=== PATIENT | female | born 1940 | race Caucasian/White ===

== ENCOUNTER 2020-09-09 13:27 | Emergency (ER) | payer MEDICARE, BC ==
[~2020-09-09] VITALS: Ht 160 cm; Wt 60.4 kg
[~2020-09-09 13:27] MED LIST: ALBU2.5V14 NEB; AMLO10TA4 PO; ASPI-630 PO; BUPR200T2 PO; CEFT1VIA IJ; CIPR500T PO; CRESTOR10 MG PO; FLUT16SP2 NS; HYDR200T71 PO; LEVO50TA PO; LOSA100T14 PO; MELO7.5T5 PO; NEBI20TA2 PO; NITR0.4T24 SL; OMEP40CA45 PO; PROP10DR4 OP; TRAM50TA PO; TRIA10.8 NS; VILA20TA PO; ZOLP10TA PO
[2020-09-09 13:34] VITALS: BP 121/64
[2020-09-09] MEDS: AMPICILLIN/SULBACTAM 3 GM in IV NORMAL SALINE 100ML 100 ML IV ONE (14:15)
--- NOTE | 2020-09-09 14:20 | PHYS DOC ---
Past History Past Medical History: No Pertinent History, Hypertension Past Surgical History: No Surgical History Alcohol Use: None General Adult EDM: Chief Complaint: ANIMAL BITE HPI: HPI: Patient is a 80-year-old female who presented to ER for evaluation of cat bite on her right hand happened about 24 hours ago. Patient was cleaning her cat, brushing the hair. Somehow, the cat turned around at BIT her on her right hand. Patient said she has raised this cat for a long time, received all the vaccination. The cat has been acting normal. Patient is not sure when she had a tetanus shot last. Patient denied any fever. She said the hand became more swollen and painful today so she came here for evaluation. Patient can open and close her right hand without any problem. Review of Systems: Review of Systems: Constitutional: Denies fever or chills Eyes: Denies change in visual acuity HENT: Denies nasal congestion or sore throat Respiratory: Denies cough or shortness of breath Cardiovascular: Denies chest pain or edema GI: Denies abdominal pain, nausea, vomiting, bloody stools or diarrhea : Denies dysuria Musculoskeletal: Positive for right hand pain and swelling. Integument: Positive for right hand redness. Neurologic: Denies headache, focal weakness or sensory changes Endocrine: Denies polyuria or polydipsia Lymphatic: Denies swollen glands Psychiatric: Denies depression or anxiety Current Medications: Current Meds: Current Medications Medications (Trade) Dose Ordered Sig/Paresh Start Time Stop Time Status Last Admin Dose Admin Ampicillin Sodium/ Sulbactam Sodium 3 gm/Sodium Chloride 100 ml @ 200 mls/hr 1X ONCE 09/09/20 14:15 09/09/20 14:44 Diphtheria/ Pertussis/Tetanus Vacc (ADACEL TDap SYRINGE) 0.5 ml ONCE ONCE 09/09/20 14:30 09/09/20 14:31 UNV Sodium Chloride 500 ml @ 0 mls/hr 1X ONCE 09/09/20 14:30 09/09/20 14:31 UNV Allergies: Allergies: Allergies Coded Allergies Type Severity Reaction Last Updated Verified cyclosporine Allergy Intermediate 07/21/14 Yes Physical Exam: PE: Constitutional: Well developed, well nourished, no acute distress, non-toxic appearance. [] HENT: Normocephalic, atraumatic, bilateral external ears normal, oropharynx moist, no oral exudates, nose normal. [] Eyes: PERRLA, EOMI, conjunctiva normal, no discharge. [] Neck: Normal range of motion, no tenderness, supple, no stridor. [] Cardiovascular:Heart rate regular rhythm, no murmur [] Lungs & Thorax: Bilateral breath sounds clear to auscultation [] Abdomen: Bowel sounds normal, soft, no tenderness, no masses, no pulsatile masses. [] Skin: Warm, dry, no erythema, no rash. [] Back: No tenderness, no CVA tenderness. [] Extremities: there are two small bite sanford on the dorsal surface of right hand just proximal to the MCP JOINTS.THERE IS STREAKING ERYTHEMA TO THE RIGHT WRIST AREA. PATIENT CAN MOVE ALL FINGERS WITHOUT ANY PROBLEM. Neurologic: Alert and oriented X 3, normal motor function, normal sensory function, no focal deficits noted. [] Psychologic: Affect normal, judgement normal, mood normal. [] Current Patient Data: Vital Signs: Vital Signs Date Time Temp Pulse Resp B/P (MAP) Pulse Ox O2 Delivery O2 Flow Rate FiO2 09/09/20 13:34 99.5 92 16 121/64 (83) 92 Room Air EKG: EKG: [] Radiology/Procedures: Radiology/Procedures: Laboratory Tests Test 09/09/20 14:48 White Blood Count 15.2 x10^3/uL Red Blood Count 3.91 x10^6/uL Hemoglobin 12.7 g/dL Hematocrit 37.3 % Mean Corpuscular Volume 95 fL Mean Corpuscular Hemoglobin 33 pg Mean Corpuscular Hemoglobin Concent 34 g/dL Red Cell Distribution Width 12.2 % Platelet Count 321 x10^3/uL Neutrophils (%) (Auto) 70 % Lymphocytes (%) (Auto) 14 % Monocytes (%) (Auto) 14 % Eosinophils (%) (Auto) 1 % Basophils (%) (Auto) 1 % Neutrophils # (Auto) 10.6 x10^3uL Lymphocytes # (Auto) 2.1 x10^3/uL Monocytes # (Auto) 2.2 x10^3/uL Eosinophils # (Auto) 0.2 x10^3/uL Basophils # (Auto) 0.1 x10^3/uL Segmented Neutrophils % 69 % Lymphocytes % 12 % Monocytes % 16 % Eosinophils % 3 % Platelet Estimate Adequate Sodium Level 136 mmol/L Potassium Level 4.0 mmol/L Chloride Level 104 mmol/L Carbon Dioxide Level 25 mmol/L Anion Gap 7 Blood Urea Nitrogen 17 mg/dL Creatinine 1.4 mg/dL Estimated GFR (Cockcroft-Gault) 36.4 BUN/Creatinine Ratio 12 Glucose Level 84 mg/dL Calcium Level 8.7 mg/dL Total Bilirubin 0.9 mg/dL Aspartate Amino Transf (AST/SGOT) 33 U/L Alanine Aminotransferase (ALT/SGPT) 13 U/L Alkaline Phosphatase 143 U/L Total Protein 7.6 g/dL Albumin 3.2 g/dL Albumin/Globulin Ratio 0.7 Current Medications Medications (Trade) Dose Ordered Sig/Paresh Route PRN Reason Start Time Stop Time Status Last Admin Dose Admin Ampicillin Sodium/ Sulbactam Sodium 3 gm/Sodium Chloride 100 ml @ 200 mls/hr 1X ONCE IV 09/09/20 14:15 09/09/20 14:44 DC 09/09/20 14:15 Diphtheria/ Pertussis/Tetanus Vacc (ADACEL TDap SYRINGE) 0.5 ml ONCE ONCE VAX IM 09/09/20 14:30 09/09/20 14:31 DC 09/09/20 14:53 Sodium Chloride 500 ml @ 0 mls/hr 1X ONCE IV 09/09/20 14:30 09/09/20 14:31 DC 09/09/20 14:52 Diphenhydramine HCl (Benadryl) 25 mg 1X ONCE IVP 09/09/20 15:30 09/09/20 15:38 DC 09/09/20 15:58 Methylprednisolone Sodium Succinate (SOLU-Medrol 125MG VIAL) 125 mg 1X ONCE IV 09/09/20 15:30 09/09/20 15:38 DC 09/09/20 15:58 [] [address] [address] IMAGING REPORT Signed PATIENT: MAJO IBRAHIM ACCOUNT: [id number] : 1940 LOCATION: ER AGE: 80 SEX: F EXAM STATUS: REG ER ORD. PHYSICIAN: SUYAPA ANGELES DO REASON: CAT BITES ON RIGHT HAND PROCEDURE: HAND RIGHT 3V Right hand 3 views 09/09/2020. Reason for exam: Cat bites. No acute fracture or dislocation is seen. There is no apparent foreign body. 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 IMPRESSION: No apparent acute abnormality. Electronically signed by: Arnaldo Cullen Jr., MD (09/09/2020 2:33 PM) [facility] DICTATED AND SIGNED BY: ARNALDO CULLEN Jr, MD DATE: 09/09/20 1431 CC: SUYAPA NAYAK MD; SUYAPA ANGELES DO ~MTH0 0 Heart Score: Risk Factors: Risk Factors: DM, Current or recent (<one month) smoker, HTN, HLP, family history of CAD, obesity. Risk Scores: Score 0 - 3: 2.5% MACE over next 6 weeks - Discharge Home Score 4 - 6: 20.3% MACE over next 6 weeks - Admit for Clinical Observation Score 7 - 10: 72.7% MACE over next 6 weeks - Early Invasive Strategies Course & Med Decision Making: Course & Med Decision Making Pertinent Labs and Imaging studies reviewed. (See chart for details) Patient is a 80-year-old female who presented to ER due to cat bite on her right hand. The wound is tender to palpation, no crepitus, THERE IS ERYTHEMA ON THE DORSAL PART OF RIGHT HAND, patient was given 3 g of Unasyn IV in ER, she will be discharged home with Augmentin. Patient will need to follow-up with her family physician in 2 days for reevaluation. Patient is amenable to plan of care. Dragon Disclaimer: Dragon Disclaimer: This electronic medical record was generated, in whole or in part, using a voice recognition dictation system. Departure Departure: Impression: Primary Impression: Cat bite of right hand with infection Disposition: 01 DC HOME SELF CARE/HOMELESS Condition: IMPROVED Referrals: SUYAPA NAYAK MD (PCP) Please follow up with your doctor in 2 days for reevaluation Patient Instructions: Animal Bite Additional Instructions: Thank you for visiting our Emergency Department. We appreciate you trusting us with your care. If any additional problems come up don't hesitate to return to visit us. Please follow up with your primary care provider so they can plan additional care if needed and know about the problem that you had. If symptoms worsen come back to the Emergency Department. Any concerning symptoms that start such as chest pain, shortness of air, weakness or numbness on one side of the body, running high fevers or any other concerning symptoms return to the ER. Scripts Amoxicillin/Potassium Clav (AUGMENTIN 875-125 TABLET) 1 Each Tablet 1 TAB PO BID for CAT BITE for 10 Days, #20 TAB 0 Refills Prov: SUYAPA ANGELES DO 09/09/20 SUYAPA ANGELES DO Sep 09, 2020 14:20
--- NOTE | 2020-09-09 14:36 | RAD ---
Right hand 3 views 09/09/2020. Reason for exam: Cat bites. No acute fracture or dislocation is seen. There is no apparent foreign body. 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 IMPRESSION: No apparent acute abnormality. Electronically signed by: Murray Cullen Jr., MD (09/09/2020 2:33 PM) [facility]
[2020-09-09] MEDS: IV NORMAL SALINE 500ML 500 ML IV ONE (14:52)
[2020-09-09] MEDS: DIPH,PERTUSS(ACELL),TET VAC/PF 0.5 ML SYRINGE. VAX IM ONE (14:53)
[2020-09-09 14:59] LABS: BASO # 0.1 x10^3/uL (0.0-0.2); BASO % 1 % (0-3); EOS # 0.2 x10^3/uL (0.0-0.7); EOS % 1 % (0-3); HEMATOCRIT 37.3 % (36.0-47.0); HEMOGLOBIN 12.7 g/dL (12.0-15.5); LYMPH # 2.1 x10^3/uL (1.0-4.8); LYMPH % 14 % (24-48); MEAN CORPUSCULAR HEMOGLOBIN 33 pg (25-35); MEAN CORPUSCULAR HGB CONC 34 g/dL (31-37); MEAN CORPUSCULAR VOLUME 95 fL (79-100); MONO # 2.2 x10^3/uL (0.0-1.1); MONO % 14 % (0-9); NEUT # 10.6 x10^3uL (1.8-7.7); NEUT % 70 % (31-73); PLATELET COUNT 321 x10^3/uL (140-400); RED BLOOD COUNT 3.91 x10^6/uL (3.50-5.40); RED CELL DISTRIBUTION WIDTH 12.2 % (11.5-14.5); WHITE BLOOD COUNT 15.2 x10^3/uL (4.0-11.0)
[2020-09-09 15:09] LABS: CALCIUM 8.7 mg/dL (8.5-10.1); CREATININE 1.4 mg/dL (0.6-1.0); GFR 36.4
[2020-09-09 15:15] LABS: ALBUMIN 3.2 g/dL (3.4-5.0); ALBUMIN/GLOBULIN RATIO 0.7 (1.0-1.7); TOTAL BILIRUBIN 0.9 mg/dL (0.2-1.0); TOTAL PROTEIN 7.6 g/dL (6.4-8.2)
[2020-09-09] MEDS: methylPREDNISolone SOD SUCC PF 125 MG/2 ML VIAL. IV ONE (15:58)
[2020-09-09] MEDS: diphenhydrAMINE 50 MG/ML VIAL IVP ONE (15:58)
[2020-09-09] MEDS ORDERED: AMOX1TAB61 PO (16:35)
[2020-09-09 16:58] LABS: % EOS 3 % (0-5); % LYMPHS 12 % (24-48); % MONOS 16 % (0-10); % SEGS 69 % (35-66)
[2020-09-09 16:59] LABS: PLT ESTIMATE ADEQUATE (ADEQUATE)
== END 2020-09-09 16:43 | disposition home or self-care (01) ==
LOC: ER 13:27
DX: S61.451A Open bite of right hand, initial encounter (principal); L08.9 Local infection of the skin and subcutaneous tissue, unspecified; I10 Essential (primary) hypertension; Z88.8 Allergy status to other drugs, medicaments and biological substances; W55.01XA Bitten by cat, initial encounter; Y93.89 Activity, other specified; Y92.89 Other specified places as the place of occurrence of the external cause; Y99.8 Other external cause status
CPT/HCPCS: 36415; 73130; 80053; 85007; 85025; 90471; 90715; 96365; 96375; J0295; J1200; J2930; J7040; 99284-25

== ENCOUNTER 2021-03-02 10:52 | Inpatient (IN) | payer MEDICARE, BC ==
[~2021-03-02] VITALS: Ht 160 cm; Wt 62.5 kg
[~2021-03-02 10:52] MED LIST changes: +AMOX1TAB61 PO; -CIPR500T PO; +CIPR500T2 PO
--- NOTE | 2021-03-02 11:43 | NUR ---
The patient, MAJO IBRAHIM, 80 y/o, F admitted by SUYAPA NAYAK MD, was given written information regarding hospital policies, unit procedures and contact persons. Valuables were checked and VS taken, please see chart.
[2021-03-02 11:45] VITALS: BP 138/77
[2021-03-02] MEDS ORDERED: GABA600T7 PO (12:29)
[2021-03-02] MEDS ORDERED: CARB1TAB22 PO (12:29)
[2021-03-02] MEDS ORDERED: CALC-495 PO (12:29)
[2021-03-02] MEDS ORDERED: PROP60CA36 PO (12:29)
[2021-03-02] MEDS ORDERED: ESCITALOPRAM OX20 MG PO (12:29)
[2021-03-02] MEDS ORDERED: HYDR200T71 PO (12:29)
[2021-03-02] MEDS ORDERED: NALT50TA PO (12:30)
[2021-03-02] MEDS ORDERED: LORA-254 PO (12:30)
[2021-03-02] MEDS ORDERED: DICL1PAT35 TP (12:30)
[2021-03-02 13:52] LABS: HEMATOCRIT 35.1 % (36.0-47.0); HEMOGLOBIN 11.9 g/dL (12.0-15.5); RED BLOOD COUNT 3.7 x10^6/uL (3.50-5.40); RED CELL DISTRIBUTION WIDTH 12.1 % (11.5-14.5); WHITE BLOOD COUNT 11.4 x10^3/uL (4.0-11.0)
[2021-03-02] MEDS: IV NORMAL SALINE 1,000ML 1,000 ML IV SCH (14:00)
[2021-03-02 14:06] LABS: ALBUMIN 3.3 g/dL (3.4-5.0); ALBUMIN/GLOBULIN RATIO 0.9 (1.0-1.7); CALCIUM 8.7 mg/dL (8.5-10.1); CREATININE 1.5 mg/dL (0.6-1.0); GFR 33.6; POTASSIUM 5.2 mmol/L (3.5-5.1); TOTAL BILIRUBIN 0.6 mg/dL (0.2-1.0)
[2021-03-02] MEDS ORDERED: ACETAMINOPHEN 500 MG TABLET PO PRN (14:15)
[2021-03-02 15:36] LABS: BILIRUBIN,URINE NEG (NEG); CLARITY,URINE HAZY; COLOR,URINE YELLOW; GLUCOSE,URINE NEG (NEG); NITRITE,URINE NEG (NEG); RBC,URINE 0 /HPF (0-2); UROBILINOGEN,URINE 0.2 mg/dL (0.2 mg/dL); WBC,URINE OCC /HPF (0-4)
[2021-03-02 15:37] LABS: BACTERIA,URINE 0 /HPF (0-FEW); SQUAMOUS EPITHELIAL CELL,UR OCC /LPF
[2021-03-02 15:51] VITALS: BP 117/71
[2021-03-02 15:59] VITALS: BP_SYST 116; BP_SYST 128; BP_SYST 136; BP_DIAS 54; BP_DIAS 63; BP_DIAS 65
--- NOTE | 2021-03-02 17:11 | RAD ---
XR HAND_LEFT 2 VIEWS, XR LT WRIST 2 VIEWS 03/02/2021 4:35 PM INDICATION: Fall, bruising to the hand COMPARISON: None available. TECHNIQUE: 2 views of the left hand and 2 views the left wrist are provided. FINDINGS/ IMPRESSION: 1. Distal radius and ulna are intact. Carpal bones appear intact. No acute fracture or dislocation. 2. There is moderate joint space narrowing of the first carpometacarpal joint with subcortical sclero sis and marginal osteophytosis compatible with moderate osteoarthrosis. No adjacent soft tissue swell ing. No secondary findings of fracture at the base of the first metacarpal. 3. 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 Carpals, metacarpals and phalanges appear intact. Remodeling of the proximal interphalangeal joint of the third digit favors advanced osteoarthrosis. No definite acute fracture o r dislocation. Chronic sclerosis along the triquetrum. 4. Osteopenia. Electronically signed by: Mary Jo Ross MD (03/02/2021 5:09 PM) [facility]
--- NOTE | 2021-03-02 17:50 | EKG ---
[address] [address] Test Date: 2021-03-02 Test Time: 17:13:33 Pat Name: MAJO IBRAHIM Department: Room: 124 A Gender: F Voice Network Engineer: : 1940 Requested By: SUYAPA NAYAK Order Number: [id number] Reading MD: Measurements Intervals [place] Rate: 59 P: 31 AK: 144 QRS: -24 QRSD: 94 T: 40 QT: 434 QTc: 434 Interpretive Statements SINUS RHYTHM LEFTWARD AXIS OTHERWISE NORMAL ECG RI6.01 No previous ECG available for comparison
--- NOTE | 2021-03-02 18:32 | RAD ---
CT brain without contrast, CT orbits without contrast. HISTORY: Falls CT brain CT scan of the brain was done without contrast. A skull fracture is not identified. Sinuses are clear . There is no intracranial hemorrhage or subdural hematoma. Ventricles are normal in size. There is n o mass effect or shift of the midline. An acute CVA is not identified. There is mild decreased densit y in the periventricular white matter. IMPRESSION: 1. No intracranial hemorrhage or acute finding noted. End impression CT images were obtained through the orbits and facial bones. Mandible is intact without fracture. Sin uses are clear throughout. A facial or orbital fracture is not identified. Ostiomeatal complex is sp ar. There is a defect in the bony septum. Orbits appear unremarkable. Patient is edentulous. Nasal fr acture is not identified. There is no acute fracture in the upper cervical spine. The cervical spine was not completely evaluated. There is facet arthritis. There is mild degenerative disc disease at C3 -4. IMPRESSION: 1. No facial or orbital fracture noted. PQRS Compliance Statement: One or more of the following individualized dose reduction techniques were utilized for this examinat ion: 1. Automated exposure control 2. Adjustment of the mA and/or kV according to patient size 3. Use of iterative reconstruction technique Electronically signed by: Juancho Ovalles MD (03/02/2021 6:30 PM) [facility]
[2021-03-02 20:00] VITALS: BP 110/69
[2021-03-02] MEDS ORDERED: NITROGLYCERIN SUBLINGUAL 0.4 MG BOTTLE OF 25. SL PRN (20:30)
[2021-03-02] MEDS ORDERED: ATORVASTATIN CALCIUM 20 MG TABLET PO SCH (21:00)
[2021-03-02] MEDS ORDERED: PROPRANOLOL 20 MG TABLET. PO SCH (21:00)
[2021-03-02] MEDS: DICLOFENAC EPOLAMINE TP SCH (21:00)
[2021-03-02] MEDS ORDERED: ALBUTEROL SULFATE 2.5 MG/3 ML NEBU. NEB PRN (21:00)
[2021-03-02] MEDS ORDERED: GABAPENTIN 300 MG CAPSULE. PO SCH (21:00)
[2021-03-02] MEDS ORDERED: CARBIDOPA/LEVODOPA 25/100MG TABLET PO SCH (21:00)
[2021-03-03 00:13] VITALS: BP 156/69
[2021-03-03] MEDS: IV NORMAL SALINE 1,000ML 1,000 ML IV SCH (03:20)
[2021-03-03] MEDS ORDERED: LEVOTHYROXINE 50 MCG TABLET PO SCH (06:00)
[2021-03-03] MEDS ORDERED: PANTOPRAZOLE 40 MG TABLET. PO SCH (07:30)
[2021-03-03] MEDS ORDERED: CALCIUM CARB/VIT D3 500/200 TABLET PO SCH (08:00)
[2021-03-03] MEDS ORDERED: FLUTICASONE 50MCG/NASAL SPRAY 16GM BOTTLE. NS SCH (09:00)
[2021-03-03] MEDS ORDERED: NALTREXONE HCL 50 MG TABLET PO SCH (09:00)
[2021-03-03] MEDS ORDERED: PROPRANOLOL 20 MG TABLET. PO SCH (09:00)
[2021-03-03] MEDS ORDERED: traMADol 50 MG TABLET PO SCH (09:00)
[2021-03-03] MEDS ORDERED: CITALOPRAM 20 MG TABLET. PO SCH (09:00)
[2021-03-03] MEDS ORDERED: buPROPion XL 300 MG TAB.ER.24H. PO SCH (09:00)
[2021-03-03] MEDS ORDERED: ASPIRIN CHEWABLE 81 MG TABLET. PO SCH (09:00)
[2021-03-03] MEDS: DICLOFENAC EPOLAMINE TP SCH (09:00)
[2021-03-03] MEDS ORDERED: HYDROXYCHLOROQUINE 200 MG TABLET PO SCH (09:00)
[2021-03-03] MEDS ORDERED: amLODIPine BESYLATE 5 MG TABLET PO SCH (09:00)
[2021-03-03 11:41] VITALS: BP 145/66
--- NOTE | 2021-03-03 13:30 | NUR ---
PT dc to home with . PT was able to ambulate with ease and mild dizziness when moving to fast. Pt is wanting to go home and feels stable. Her son's tried to visit today and were told not visitors, so patient was upset. Called registration because nobody had called and talked to myself, her nurse. Visitors are currently allowed. Was told by Angelica in registration that there was some confusion with a new employee and they were accidently turned away. I apologized for the confusion. PT left with family via ambulation. Mely Villarreal APRN
--- NOTE | 2021-03-03 16:34 | NUR ---
PT refusing to be turned. PT reports that she turns her self and moves around in the bed. PT has a pure wick to suction. Pt reporting that she is in pain. She asked this after noon when I would be giving her all her medications? Told her that she took them all this AM during breakfast and she reported "Oh I don't remember that". PT asking for her flexeril. Pt was informed that Dr. Jacob discontinued the flexeril. Pt upset. PT is partially able to verbalize understanding of poc. Encourage pt to keep heels off the bed and wear heel protectors and pt refused.
--- NOTE | 2021-03-04 14:55 | DS ---
DATE OF DISCHARGE: 03/03/2021 A 80-year-old female has been falling several times at home out of bed and trying to walk in her home. She was brought in, she has multiple contusions to right orbit as well as her left wrist was markedly swollen. X-rays did not demonstrate any particular fractures. CT of the head was unremarkable. Hemoglobin was slightly low at 11.9 and 35. The patient's albumin was slightly low at 3.3. Potassium is slightly elevated at 5.2. The patient receive physical and occupational therapy. She was rehydrated and she was orthostatic in the office and showed a 20-point decrease in her blood pressure when standing. The patient made good progress. She was continued to be monitored on her situation with her walking before she was left and stabilized and then she was discharged home. She will be followed up and may consider home health for her if or consented by the family. 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 Plan as above. Continue to monitor the patient accordingly, make further evaluation as indicated. She will be on a regular diet, decrease activity and a further evaluation on her as indicated. moderate protein malnutrition. SONIA/PETRONA/KACEY DR: SONIA/gallo TID: [id number]
== END 2021-03-03 13:30 | disposition home or self-care (01) | DRG 312 ==
LOC: 1 SOUTH 10:52
PROVIDERS: ADMIT Family Medicine; ATTEND Family Medicine
DX: I95.1 Orthostatic hypotension (principal); E44.0 Moderate protein-calorie malnutrition; S05.11XA Contusion of eyeball and orbital tissues, right eye, initial encounter; Z68.24 Body mass index [BMI] 24.0-24.9, adult; S63.502A Unspecified sprain of left wrist, initial encounter; W06.XXXA Fall from bed, initial encounter; Y93.89 Activity, other specified; Y92.098 Other place in other non-institutional residence as the place of occurrence of the external cause; Y99.8 Other external cause status; Z88.8 Allergy status to other drugs, medicaments and biological substances; Z79.899 Other long term (current) drug therapy; Z90.710 Acquired absence of both cervix and uterus
CPT/HCPCS: 36415; 70450; 70480; 73100; 73120; 80053; 81001; 84484; 85027; 87086; 93005; 97116; J7030

== ENCOUNTER → 2021-04-19 | Outpatient (CLI) | payer MEDICARE, BC ==
[~2021-04-19] MED LIST changes: +CALC-495 PO; +CARB1TAB22 PO; +DICL1PAT35 TP; +ESCITALOPRAM OX20 MG PO; +GABA600T7 PO; +LORA-254 PO; +NALT50TA PO; -OMEP40CA45 PO; +OMEP40CA7 PO; +PROP60CA36 PO
[2021-04-19 09:09] LABS: HEMATOCRIT 38.1 % (36.0-47.0); HEMOGLOBIN 13.2 g/dL (12.0-15.5)
[2021-04-19 09:20] LABS: ALBUMIN 3.5 g/dL (3.4-5.0); CREATININE 1.5 mg/dL (0.6-1.0); GFR 33.6; PHOSPHORUS 5.2 mg/dL (2.6-4.7); POTASSIUM 4.2 mmol/L (3.5-5.1)
[2021-04-19 09:21] LABS: BILIRUBIN,URINE NEG (NEG); CLARITY,URINE HAZY; COLOR,URINE YELLOW; GLUCOSE,URINE NEG (NEG); NITRITE,URINE NEG (NEG)
[2021-04-19 09:23] LABS: BACTERIA,URINE FEW /HPF (0-FEW); RBC,URINE OCC /HPF (0-2); SQUAMOUS EPITHELIAL CELL,UR FEW /LPF
[2021-04-19 16:05] LABS: CREATININE,RANDOM URINE 185.1 mg/dL (Not Establ.)
[2021-04-19 22:07] LABS: MICROALB RD UR 72.1 ug/mL (Not Estab.)
[2021-04-19 23:07] LABS: CALCIUM PTH 9.4 mg/dL (8.7-10.3); CREATININE PTH 1.35 mg/dL (0.57-1.00); PTH INTACT 34 pg/mL (15-65)
== END ==
LOC: LAB 07:32
PROVIDERS: ATTEND Internal Medicine Nephrology
DX: I12.9 Hypertensive chronic kidney disease with stage 1 through stage 4 chronic kidney disease, or unspecified chronic kidney disease (principal); N18.32 Chronic kidney disease, stage 3b; D64.9 Anemia, unspecified; E83.30 Disorder of phosphorus metabolism, unspecified; Z79.899 Other long term (current) drug therapy
CPT/HCPCS: 80069; 81001; 82043; 82306; 82570; 83970; 84156; 85014; 85018; 87086

== ENCOUNTER 2021-06-10 14:58 | Inpatient (IN) | payer MEDICARE, BC ==
[~2021-06-10] VITALS: Ht 160 cm; Wt 57.9 kg
[2021-06-10] MEDS ORDERED: IV NORMAL SALINE 1,000ML 1,000 ML IV ONE (15:15)
--- NOTE | 2021-06-10 15:27 | PHYS DOC ---
Past History Past Medical History: No Pertinent History, Hypertension (IMMANUEL ALTAMIRANO APRN) Past Surgical History: No Surgical History (IMMANUEL ALTAMIRANO APRN) Alcohol Use: None (IMMANUEL ALTAMIRANO APRN) General Adult EDM: Chief Complaint: NAUSEA/VOMITING/DIARRHEA HPI: HPI: Patient is a 81-year-old female who presents to the ER for nausea, vomiting, generalized weakness. Patient reports frequent falls. She states she loses her balance and falls and fell this morning. She reports falling 15 times this year so far. Patient currently has right shoulder fracture from a previous fall and it is in a sling. Patient states anytime she tries to take anything by mouth she ends up regurgitating it. Patient has a history of esophageal strictures with stretching. Her last procedure was performed by Dr. Fiore. She denies diarrhea, fevers, abdominal pain, headaches. She denies hitting her head or loss of consciousness after her fall this morning and reports that she just slid out of bed. (IMMANUEL ALTAMIRANO APRN) Review of Systems: Review of Systems: 14 body systems of the review of systems have been reviewed. See HPI for pertinent positive and negative responses, otherwise all other systems are negative, nonpertinent or noncontributory (IMMANUEL ALTAMIRANO APRN) Current Medications: Current Meds: Current Medications Medications (Trade) Dose Ordered Sig/Paresh Start Time Stop Time Status Last Admin Dose Admin Sodium Chloride 1,000 ml @ 1,000 mls/hr 1X ONCE 06/10/21 15:15 06/10/21 16:14 (IMMANUEL ALTAMIRANO APRN) Allergies: Allergies: Allergies Coded Allergies Type Severity Reaction Last Updated Verified cyclosporine Allergy Intermediate 06/10/21 Yes ropinirole Allergy Mild nausea 06/10/21 Yes ciprofloxacin Allergy Unknown 06/10/21 Yes (IMMANUEL ALTAMIRANO APRN) Physical Exam: PE: Constitutional: Well developed, well nourished, no acute distress, non-toxic appearance. [] HENT: Normocephalic, atraumatic, bilateral external ears normal, oropharynx moist, no oral exudates, nose normal. [] Eyes: PERRLA, EOMI, conjunctiva normal, no discharge. [] Neck: Normal range of motion, no tenderness, supple, no stridor. [] Cardiovascular:Heart rate regular rhythm, no murmur [] Lungs & Thorax: Bilateral breath sounds clear to auscultation [] Abdomen: Bowel sounds normal, soft, no tenderness, no masses, no pulsatile masses. [] Skin: Warm, dry, no erythema, no rash. [] Back: No tenderness, normal range of motion Extremities: No tenderness, no cyanosis, no clubbing, ROM intact, no edema. Right arm in sling. [] Neurologic: Alert and oriented X 3, normal motor function, normal sensory function, no focal deficits noted. [] Psychologic: Affect normal, judgement normal, mood normal. [] (IMMANUEL ALTAMIRANO APRN) Current Patient Data: Vital Signs: Vital Signs Date Time Temp Pulse Resp B/P (MAP) Pulse Ox O2 Delivery O2 Flow Rate FiO2 06/10/21 15:05 98.6 77 18 145/66 99 Room Air (IMMANUEL ALTAMIRANO APRN) EKG: EKG: EKG performed by ER staff at 1532 shows sinus rhythm, no STEMI read by Dr. Rosado at 1542. [] (IMMANUEL ALTAMIRANO APRN) Radiology/Procedures: Radiology/Procedures: PROCEDURE: CT CHEST W/CONTRAST CT THORAX W History: Dysphagia Technique: CT of the chest was performed with intravenous contrast. Coronal and sagittal reconstructions were performed. Exposure: One or more of the following individualized dose reduction techniques were utilized for this examination: 1. Automated exposure control 2. Adjustment of the mA and/or kV according to patient size 3. Use of iterative reconstruction technique. Comparison: None Findings: Chest: No pulmonary embolism. No aortic aneurysm or dissection. Moderate atheromatous plaque within the aorta. Small mediastinal lymph nodes. Calcified right hilar lymph nodes, likely prior granulomatous disease. Coronary artery calcifications. Enlarged anterior pericardial lymph nodes measure 2.3 x 0.6 cm. Dilated fluid-filled esophagus. Esophageal wall thickening most prominent within the mid to distal aspect. Small hiatal hernia. Mildly enlarged distal paraesophageal lymph nodes measure 1.4 x 1.0 cm. No consolidation or pleural effusion. Scattered linear atelectasis. No pneumothorax. 3 no other left lower lobe pulmonary nodule (series 4 image 87). 2 mm left lower lobe pulmonary nodule (image 78). 2 minor right lower lobe pulmonary nodule (image 46). Upper abdomen: Heterogeneous appearance of the liver with nodular morphology. Prior cholecystectomy. The spleen is not identified within the left upper quadrant. Bilateral renal hypodensities, likely cysts. Mild right hydronephrosis. Bilateral enlarged upper abdominal lymph nodes. Bones: Acute right proximal humerus fracture. Right glenohumeral joint effusion. No dislocation. Chronic left distal clavicular fracture. Chronic T11 compression fracture. Impression: 1. Distended fluid-filled esophagus with wall thickening, may represent esophagitis. Recommend correlation for distal obstructing mass. 2. Acute right proximal humerus fracture. 3. Nodular morphology of the liver, indicating chronic liver disease. 4. Mildly enlarged anterior pericardial, distal paraesophageal and upper abdominal lymph nodes, potentially reactive. Recommend follow-up. 5. Small pulmonary nodules. Recommend attention on follow-up. 6. Mild right hydronephrosis. Electronically signed by: Ethan Dominguez DO (06/10/2021 4:59 PM) [facility] DICTATED AND SIGNED BY: ETHAN DOMINGUEZ DO DATE: 06/10/211645 CC: SUYAPA NAYAK MD; IMMANUEL ALTAMIRANO APRN ~MTH0 0 [] (IMMANUEL ALTAMIRANO APRN) Heart Score: C/O Chest Pain: No Risk Factors: Risk Factors: DM, Current or recent (<one month) smoker, HTN, HLP, family history of CAD, obesity. Risk Scores: Score 0 - 3: 2.5% MACE over next 6 weeks - Discharge Home Score 4 - 6: 20.3% MACE over next 6 weeks - Admit for Clinical Observation Score 7 - 10: 72.7% MACE over next 6 weeks - Early Invasive Strategies (IMMANUEL ALTAMIRANO APRN) Course & Med Decision Making: Course & Med Decision Making Pertinent Labs and Imaging studies reviewed. (See chart for details) [] Patient is a 81-year-old female being seen for nausea, vomiting, and generalized weakness with frequent falls. Work-up in the ER consisted of blood work, urinalysis, EKG. patient is noted to have leukocytosis. CT scan shows esophagitis. Patient p.o. challenge in the ER and she was unable to tolerate fluids. It is likely that patient has an esophageal stricture which is causing her to have regurgitation. I discussed patient's case with Dr. Pitts who is her primary care provider and he will admit her under his care for inability to tolerate oral intake. Patient will need a GI consult at some point, there are no available beds at [facility] at this time. Patient notified of plan of care and agreeable at this time. Care transferred at this time 190 (IMMANUEL ALTAMIRANO APRN) Maria Luisa Disclaimer: Maria Luisa Disclaimer: This electronic medical record was generated, in whole or in part, using a voice recognition dictation system. (IMMANUEL ALTAMIRANO APRN) Attending Co-Sign The patient was seen and interviewed as well as examined at the bedside. The chart was reviewed. The case was discussed. Agree with the plan of care. (JANUSZ GORDON DO) Departure Departure: Impression: Primary Impression: Esophagitis Additional Impression: At risk for dehydration due to poor fluid intake Disposition: ADMITTED INPATIENT Admitting Physician: Suyapa Nayak (IMMANUEL ALTAMIRANO APRN) Condition: GOOD Referrals: SUYAPA NAYAK MD (PCP) IMMANUEL ALTAMIRANO APRN Jun 10, 2021 15:27 JANUSZ GORDON DO Jun 13, 2021 19:53
[2021-06-10 15:51] LABS: BASO # 0.1 x10^3/uL (0.0-0.2); BASO % 1 % (0-3); EOS # 0.2 x10^3/uL (0.0-0.7); EOS % 1 % (0-3); LYMPH # 2.2 x10^3/uL (1.0-4.8); LYMPH % 15 % (24-48); MEAN CORPUSCULAR HEMOGLOBIN 32 pg (25-35); MEAN CORPUSCULAR HGB CONC 33 g/dL (31-37); MEAN CORPUSCULAR VOLUME 97 fL (79-100); MONO # 2.5 x10^3/uL (0.0-1.1); MONO % 17 % (0-9); NEUT % 67 % (31-73); PLATELET COUNT 315 x10^3/uL (140-400); RED BLOOD COUNT 3.71 x10^6/uL (3.50-5.40); RED CELL DISTRIBUTION WIDTH 12.6 % (11.5-14.5); WHITE BLOOD COUNT 15.1 x10^3/uL (4.0-11.0)
[2021-06-10 16:05] LABS: CALCIUM 8.6 mg/dL (8.5-10.1); GFR 53.5; POTASSIUM 4.2 mmol/L (3.5-5.1)
[2021-06-10 16:12] LABS: ALBUMIN 3.3 g/dL (3.4-5.0); ALBUMIN/GLOBULIN RATIO 0.8 (1.0-1.7); TOTAL BILIRUBIN 0.9 mg/dL (0.2-1.0); TOTAL PROTEIN 7.2 g/dL (6.4-8.2)
[2021-06-10] MEDS ORDERED: IOHEXOL 300 MG/ML 75 ML VIAL. IV ONE (16:30)
--- NOTE | 2021-06-10 16:38 | EKG ---
[address] [address] Test Date: 2021-06-10 Test Time: 15:32:26 Pat Name: MAJO IBRAHIM Department: Room: Gender: F Radiography Technician: KENNEY : 1940 Requested By: IMMANUEL ALTAMIRANO Order Number: [id number] Reading MD: Measurements Intervals [place] Rate: 75 P: 52 ME: 140 QRS: -35 QRSD: 98 T: 42 QT: 390 QTc: 438 Interpretive Statements SINUS RHYTHM ABNORMAL LEFT AXIS DEVIATION LEFT ANTERIOR FASCICULAR BLOCK QRS(T) CONTOUR ABNORMALITY CONSIDER ANTEROSEPTAL MYOCARDIAL DAMAGE ABNORMAL ECG RI6.02 No previous ECG available for comparison
[2021-06-10] MEDS ORDERED: CONTRAST GIVEN. MC PRN (17:00)
--- NOTE | 2021-06-10 17:01 | RAD ---
CT THORAX W History: Dysphagia Technique: CT of the chest was performed with intravenous contrast. Coronal and sagittal reconstructi ons were performed. Exposure: One or more of the following individualized dose reduction techniques were utilized for thi s examination: 1. Automated exposure control 2. Adjustment of the mA and/or kV according to patient size 3. Use of iterative reconstruction technique. Comparison: None Findings: Chest: No pulmonary embolism. No aortic aneurysm or dissection. Moderate atheromatous plaque within t he aorta. Small mediastinal lymph nodes. Calcified right hilar lymph nodes, likely prior granulomatou s disease. Coronary artery calcifications. Enlarged anterior pericardial lymph nodes measure 2.3 x 0.6 cm. Dilated fluid-filled esophagus. Esophageal wall thickening most prominent within the mid to distal as pect. Small hiatal hernia. Mildly enlarged distal paraesophageal lymph nodes measure 1.4 x 1.0 cm. No consolidation or pleural effusion. Scattered linear atelectasis. No pneumothorax. 3 no other left lower lobe pulmonary nodule (series 4 image 87). 2 mm left lower lobe pulmonary nodul e (image 78). 2 minor right lower lobe pulmonary nodule (image 46). Upper abdomen: Heterogeneous appearance of the liver with nodular morphology. Prior cholecystectomy. The spleen is not identified within the left upper quadrant. Bilateral renal hypodensities, likely cy sts. Mild right hydronephrosis. Bilateral enlarged upper abdominal lymph nodes. Bones: Acute right proximal humerus fracture. Right glenohumeral joint effusion. No dislocation. [employer] Observer kayli left distal clavicular fracture. Chronic T11 compression fracture. Impression: 1. Distended fluid-filled esophagus with wall thickening, may represent esophagitis. Recommend corre lation for distal obstructing mass. 2. Acute right proximal humerus fracture. 3. Nodular morphology of the liver, indicating chronic liver disease. 4. Mildly enlarged anterior pericardial, distal paraesophageal and upper abdominal lymph nodes, pote ntially reactive. Recommend follow-up. 5. Small pulmonary nodules. Recommend attention on follow-up. 6. Mild right hydronephrosis. Electronically signed by: Ethan Dominguez DO (06/10/2021 4:59 PM) [facility]
[2021-06-10] MEDS ORDERED: LIDO:MAALOX 1:1 20 ML SINGLE DOSE. PO ONE (17:30)
[2021-06-10] MEDS ORDERED: ONDANSETRON PF 4 MG/2 ML VIAL. IVP PRN (19:15)
[2021-06-10] MEDS ORDERED: IV NORMAL SALINE 1,000ML 1,000 ML IV SCH (19:15)
[2021-06-10 19:57] LABS: BACTERIA,URINE FEW /HPF (0-FEW); BILIRUBIN,URINE NEG (NEG); CLARITY,URINE CLEAR; COLOR,URINE YELLOW; GLUCOSE,URINE NEG (NEG); NITRITE,URINE NEG (NEG); SQUAMOUS EPITHELIAL CELL,UR MANY /LPF
[2021-06-10] MEDS ORDERED: PANTOPRAZOLE IV 40 MG VIAL. IVP ONE (21:00)
--- NOTE | 2021-06-10 21:15 | NUR ---
The patient, MAJO IBRAHIM, 81 y/o, F admitted by SUYAPA NAYAK MD, was given written information regarding hospital policies, unit procedures and contact persons. Valuables were checked and vitals obtained. Pt is A&Ox4 on room air and able to express own concerns. Pt can ambulate to toilet with little assistance. Currently pt is in bed resting. Will continue to monitor.
[2021-06-10] MEDS ORDERED: LORazepam 0.5 MG TABLET PO PRN (21:30)
[2021-06-10] MEDS: GABAPENTIN 300 MG CAPSULE. PO SCH (21:30)
[2021-06-10] MEDS: CARBIDOPA/LEVODOPA 25/100MG TABLET PO SCH (21:30)
[2021-06-10] MEDS: dilTIAZem HCL 30 MG TABLET PO SCH (21:47)
[2021-06-10] MEDS ORDERED: ALBUTEROL SULFATE 8GM INHALER. INH PRN (22:00)
[2021-06-10] MEDS: IV 1/2 NORMAL SALINE 1,000 ML IV SCH (22:01)
[2021-06-10 22:45] LABS: % BANDS 5 % (0-9); % EOS 1 % (0-5); % LYMPHS 13 % (24-48); % MONOS 4 % (0-10); % SEGS 77 % (35-66); PLT ESTIMATE ADEQUATE (ADEQUATE)
[2021-06-10 23:25] VITALS: BP 138/71
[2021-06-11] MEDS: DICLOFENAC SODIUM 1% TOPICAL GEL 100GM TUBE. TP SCH ×3 (03:12→21:42)
[2021-06-11] MEDS: IV 1/2 NORMAL SALINE 1,000 ML IV SCH (04:42)
[2021-06-11 06:14] VITALS: BP_SYST 138; BP_SYST 159; BP_DIAS 70; BP_DIAS 73
[2021-06-11] MEDS: dilTIAZem HCL 30 MG TABLET PO SCH ×3 (07:25→19:29)
[2021-06-11] MEDS: LEVOTHYROXINE 50 MCG TABLET PO SCH (07:25)
--- NOTE | 2021-06-11 07:28 | NUR ---
NURSING 0600 doses of cardizem et synthroid not given by night club manager 2/2 pt NPO status.
[2021-06-11] MEDS: FLUTICASONE 50MCG/NASAL SPRAY 16GM BOTTLE. NS SCH (08:13)
[2021-06-11] MEDS: ASPIRIN CHEWABLE 81 MG TABLET. PO SCH (08:13)
[2021-06-11] MEDS: PANTOPRAZOLE IV 40 MG VIAL. IVP SCH (08:13)
[2021-06-11] MEDS: CITALOPRAM 20 MG TABLET. PO SCH (08:13)
[2021-06-11] MEDS: NALTREXONE HCL 50 MG TABLET PO SCH (08:14)
[2021-06-11] MEDS: buPROPion XL 300 MG TAB.ER.24H. PO SCH (08:14)
[2021-06-11] MEDS: LOSARTAN 50 MG TABLET. PO SCH (08:14)
[2021-06-11] MEDS ORDERED: amLODIPine BESYLATE 10 MG TABLET PO SCH (09:00)
[2021-06-11] MEDS: MORPHINE SULFATE 2 MG/ML DISP.SYRIN. IV PRN ×2 (09:43→17:48)
[2021-06-11] MEDS: AA 4.25 %/CALCIUM/LYTES/D5W 1,000 ML IV SCH ×2 (10:35→23:15)
[2021-06-11 11:22] VITALS: BP 145/73
--- NOTE | 2021-06-11 11:54 | RAD ---
EXAM: Head CT without contrast. HISTORY: Fall. Pain. TECHNIQUE: Computed tomographic images of the head were obtained without contrast. *One or more of the following individualized dose reduction techniques were utilized for this examina tion: 1. Automated exposure control. 2. Adjustment of the mA and/or kV according to patient size. 3. Use of iterative reconstruction technique. COMPARISON: 03/02/2021. FINDINGS: There is no acute or subacute extra-axial or intraparenchymal hemorrhage. There is no mass effect or midline shift. There is no hydrocephalus. There are areas of decreased attenuation within the cerebral white matter, nonspecific and likely rel ated to chronic small vessel disease. There is cerebral volume loss. The visualized portions of the orbits, paranasal sinuses and mastoid air cells are unremarkable. No s uspicious calvarial lesion is seen. IMPRESSION: 1. No acute intracranial finding. Note is made that MRI is more sensitive for acute infarction. 2. Bilateral cerebral white matter changes likely due to chronic small vessel disease and cerebral vo lume loss. Electronically signed by: Shelley Walsh MD (06/11/2021 11:52 AM) [id number]
--- NOTE | 2021-06-11 11:59 | HP ---
HISTORY OF PRESENT ILLNESS: A 81-year-old female with probably 3-4 days history of generalized weakness. She fell here in the morning of admission, lost her balance and the patient has been having problems with falling. She came in through the Emergency Room. Apparently, she has a fracture to her right humerus area, nondisplaced. She is in a sling there. The patient also notes she is having trouble swallowing and she has a history of esophageal strictures as well as severe pain and anxiety. As a result of this, the patient was admitted to the hospital obviously for further evaluation of her fractured shoulder and probable esophageal stenosis of some sort. CT shows possible esophagitis. The patient is admitted for control of pain, further evaluation of her blockage, she will be kept at 35-degree angle, IV Protonix, calcium channel blockers and then GI consult PAST MEDICAL HISTORY: Cataracts, hypertension, cholecystectomy, GERD, tubal ligation, hysterectomy, incontinence, orthopedic surgery of the left shoulder fracture, psychiatric problems , bipolar. Influenza vaccine and pneumococcal. She also interesting enough has had spleen removed, which is significant obviously is important to note. She has had her pneumococcal vaccination. FAMILY HISTORY: Father with heart attack. Mother with depression, dementia, cholecystectomy, stroke and blood clots. ALLERGIES: The patient has allergies to ROBINUL, CYCLOSPORINE, AND CIPROFLOXACIN. SOCIAL HISTORY: The patient denies smoking. Does have alcohol use. The patient is a DNR. REVIEW OF SYSTEMS: She denies any headaches, visual change, blurred vision, double vision. Does have quite a bit of pain with that shoulder, which is in a sling. The patient otherwise denies any shortness of breath, presently does have trouble swallowing and bringing up phlegm and saliva. The patient denies any abdominal pain per se and denies any hepatosplenomegaly or the like there. Neurologically, the patient alert and oriented x 3. PHYSICAL EXAMINATION: GENERAL: This is a pleasant white female, in moderate amount of discomfort. The patient is alert and oriented. VITAL SIGNS: Blood pressure 138/70, respirations 18, pulse 80, afebrile, 92 on room air. HEENT: The patient is without dentures. Eyes are PERRL. NECK: Supple without JVD, carotid bruit, thyromegaly. LUNGS: Diminished, but clear. MUSCULOSKELETAL: The patient has trouble moving her right shoulder because of the fracture. CARDIOVASCULAR: Regular sinus rhythm. ABDOMEN: Soft, nontender, no hepatomegaly. The patient otherwise has positive bowel sounds. EXTREMITIES: Without clubbing, cyanosis, nor edema. NEUROLOGIC: The patient is alert and oriented x 3. LABORATORY DATA: White count was 15,000. Differential shows some monocytes and low neutrophils. Albumin low at 3.3. Rest of her chemistries were basically normal. Alkaline phosphatase elevated, probably from bone deterioration. The patient with SARS negative. ASSESSMENT AND PLAN: Therefore, esophageal stricture, esophageal stenosis, regurgitation, fracture of the right shoulder, multiple falls. The patient will need a CT scan of her head. She probably needs GI, Orthopedic and Neuro consults while down to [place] moving her down there for Gastroenterology consult since none is available here to evaluate this esophageal situation. SONIA/YOGESH/EAN DR: Ema TID: [id number]
[2021-06-11 15:05] VITALS: BP 149/70
[2021-06-11] MEDS: CARBIDOPA/LEVODOPA 25/100MG TABLET PO SCH (19:28)
[2021-06-11] MEDS: GABAPENTIN 300 MG CAPSULE. PO SCH (19:28)
[2021-06-11 19:34] VITALS: BP 117/69
[2021-06-11 23:18] VITALS: BP 151/71
--- NOTE | 2021-06-11 23:30 | NUR ---
Patient is in bed and reports that she is unable to relax. She has RLS, and requests PRN ativan for the restlessness. PRN ativan given per order via IV. Will continue to monitor.
[2021-06-12] MEDS: LEVOTHYROXINE 50 MCG TABLET PO SCH (00:16)
[2021-06-12] MEDS: dilTIAZem HCL 30 MG TABLET PO SCH ×3 (00:16→21:01)
[2021-06-12 05:29] VITALS: BP 128/71
[2021-06-12 07:17] LABS: BASO # 0.1 x10^3/uL (0.0-0.2); BASO % 1 % (0-3); EOS # 0.1 x10^3/uL (0.0-0.7); EOS % 1 % (0-3); HEMOGLOBIN 11.9 g/dL (12.0-15.5); LYMPH # 1.3 x10^3/uL (1.0-4.8); LYMPH % 9 % (24-48); MEAN CORPUSCULAR HEMOGLOBIN 32 pg (25-35); MEAN CORPUSCULAR HGB CONC 34 g/dL (31-37); MEAN CORPUSCULAR VOLUME 94 fL (79-100); MONO # 1.5 x10^3/uL (0.0-1.1); MONO % 10 % (0-9); NEUT % 80 % (31-73); PLATELET COUNT 345 x10^3/uL (140-400); RED BLOOD COUNT 3.71 x10^6/uL (3.50-5.40); RED CELL DISTRIBUTION WIDTH 12.3 % (11.5-14.5)
[2021-06-12 07:25] LABS: CALCIUM 8.2 mg/dL (8.5-10.1); CREATININE 0.9 mg/dL (0.6-1.0); GFR 60.4; POTASSIUM 3.8 mmol/L (3.5-5.1)
[2021-06-12] MEDS: PANTOPRAZOLE IV 40 MG VIAL. IVP SCH (08:07)
[2021-06-12] MEDS: MORPHINE SULFATE 2 MG/ML DISP.SYRIN. IV PRN (08:08)
[2021-06-12] MEDS: FLUTICASONE 50MCG/NASAL SPRAY 16GM BOTTLE. NS SCH (08:17)
[2021-06-12] MEDS: ASPIRIN CHEWABLE 81 MG TABLET. PO SCH (08:18)
[2021-06-12] MEDS: NALTREXONE HCL 50 MG TABLET PO SCH (08:18)
[2021-06-12] MEDS: CITALOPRAM 20 MG TABLET. PO SCH (08:18)
[2021-06-12] MEDS: LOSARTAN 50 MG TABLET. PO SCH (08:18)
[2021-06-12] MEDS: buPROPion XL 300 MG TAB.ER.24H. PO SCH (08:18)
[2021-06-12] MEDS: DICLOFENAC SODIUM 1% TOPICAL GEL 100GM TUBE. TP SCH ×2 (08:19→21:00)
[2021-06-12 11:12] VITALS: BP 126/68
[2021-06-12 16:23] VITALS: BP 149/70
[2021-06-12] MEDS: AA 4.25 %/CALCIUM/LYTES/D5W 1,000 ML IV SCH (18:44)
[2021-06-12 20:48] VITALS: BP 152/78
[2021-06-12] MEDS: CARBIDOPA/LEVODOPA 25/100MG TABLET PO SCH (21:01)
[2021-06-12] MEDS: GABAPENTIN 300 MG CAPSULE. PO SCH (21:02)
[2021-06-13] MEDS: LEVOTHYROXINE 50 MCG TABLET PO SCH ×2 (05:42→07:09)
[2021-06-13 05:46] VITALS: BP 157/72
[2021-06-13] MEDS: dilTIAZem HCL 30 MG TABLET PO SCH ×2 (06:00→14:00)
--- NOTE | 2021-06-13 06:37 | PN ---
SUBJECTIVE: The patient still with obstruction of her esophagus, unable to swallow, bringing up bile material. We are trying to get her transferred to a facility that has a GI availability and that has become a very difficult task due to the influx of other problems ____ other institutions not able to get her transferred. The patient is gagging up material. There is concern for possible aspiration pneumonia. OBJECTIVE: VITAL SIGNS: Blood pressure 149/70, respiration 18, pulse 82, afebrile. GENERAL: The patient is alert, oriented, but difficulty speaking. The patient is losing weight. We are giving her additional nutritional supplement through IV, but this continues to be a real tug of war with her. We will continue with IV fluids and comfort care, trying to give her some calcium-channel blockers to open up that esophagus, as well as Protonix. Frail appearing white female. LUNGS: Diminished throughout, poor movement of air. CARDIOVASCULAR: Regular sinus rhythm. ABDOMEN: Soft, nontender. IMPRESSION: Aspiration, esophageal strictures with possible mass, cachexia, moderate protein malnutrition. PLAN: Continue to monitor as above. SONIA/RAHEL/NAOMI DR: SONIA/gallo TID: [id number]
[2021-06-13] MEDS: PANTOPRAZOLE IV 40 MG VIAL. IVP SCH (07:30)
[2021-06-13] MEDS: AA 4.25 %/CALCIUM/LYTES/D5W 1,000 ML IV SCH (08:14)
[2021-06-13] MEDS: NALTREXONE HCL 50 MG TABLET PO SCH (09:00)
[2021-06-13] MEDS: ASPIRIN CHEWABLE 81 MG TABLET. PO SCH (09:00)
[2021-06-13] MEDS: LOSARTAN 50 MG TABLET. PO SCH (09:00)
[2021-06-13] MEDS: buPROPion XL 300 MG TAB.ER.24H. PO SCH (09:00)
[2021-06-13] MEDS: FLUTICASONE 50MCG/NASAL SPRAY 16GM BOTTLE. NS SCH (09:00)
[2021-06-13] MEDS: CITALOPRAM 20 MG TABLET. PO SCH (09:00)
[2021-06-13 11:08] VITALS: BP 150/71
[2021-06-13] MEDS: MORPHINE SULFATE 2 MG/ML DISP.SYRIN. IV PRN (12:12)
[2021-06-13 15:07] VITALS: BP 141/72
--- NOTE | 2021-06-13 17:08 | NUR ---
discharge note Pt discharged at 1610 via ems to [facility]
--- NOTE | 2021-06-25 09:00 | DS ---
HOSPITAL COURSE: A 81-year-old female came in with difficulty swallowing. The patient had food lodged in her esophagus and had problems with regurgitation of mucus and saliva that she had tried to swallow. She had a distended fluid-filled esophagus with wall thickening consistent with esophagitis. The patient otherwise due to a backup at [place] due to the COVID pandemic, we were not able to transfer her immediately down. The patient made some progress. We did put her on PPIs and calcium channel blockers to help with the movement of the food. Her white count was elevated at 15,000, hemoglobin 11.9 and the like. Chemistries showed 139, 3.8, 22, 0.9 with an albumin slightly low at 3.3, lipase was normal. The patient otherwise had 5-10 white blood cells, but urine was unremarkable. In any case, the patient made sufficient progress to be discharged and follow up with Dr. Hampton as an outpatient. IMPRESSION: Impaction of the esophagus with esophageal spasm, esophagitis, moderate protein malnutrition, pulmonary nodules, chronic liver disease. The patient will be discharged home, followed up as an outpatient as indicated with Dr. Hampton and see [facility]. SONIA/[facility] [place]: SONIA/gallo TID: [id number]
== END 2021-06-13 16:18 | disposition short-term general hospital (02) | DRG 392 ==
LOC: ER 14:58 → 1 SOUTH 20:48
PROVIDERS: ADMIT Family Medicine; ATTEND Family Medicine
DX: K20.80 Other esophagitis without bleeding (principal); S42.91XA Fracture of right shoulder girdle, part unspecified, initial encounter for closed fracture; R64 Cachexia; E44.0 Moderate protein-calorie malnutrition; K22.4 Dyskinesia of esophagus; K22.2 Esophageal obstruction; I10 Essential (primary) hypertension; R29.6 Repeated falls; F41.9 Anxiety disorder, unspecified; Z66 Do not resuscitate; Z20.822 Contact with and (suspected) exposure to COVID-19; Z90.710 Acquired absence of both cervix and uterus; Z82.49 Family history of ischemic heart disease and other diseases of the circulatory system; Z82.3 Family history of stroke; Z81.8 Family history of other mental and behavioral disorders; Z88.8 Allergy status to other drugs, medicaments and biological substances; Z90.49 Acquired absence of other specified parts of digestive tract; Z98.51 Tubal ligation status; Z68.22 Body mass index [BMI] 22.0-22.9, adult; W19.XXXA Unspecified fall, initial encounter; Y93.89 Activity, other specified; Y92.89 Other specified places as the place of occurrence of the external cause; Y99.8 Other external cause status
CPT/HCPCS: 36415; 70450; 71260; 80048; 80053; 81001; 83690; 84484; 85007; 85025; 87086; 87426; 93005; 96360; 96361; C9113; G0480; J2060; J2270; J3490; J7030; Q9967; U0003; 97116; 99285-25

== ENCOUNTER → 2022-02-17 | Outpatient (CLI) | payer MEDICARE, BC ==
[2022-02-17 14:06] LABS: CHOLESTEROL/HDL RATIO 1.8
== END ==
LOC: LAB 10:00
PROVIDERS: ATTEND Internal Medicine Cardiovascular Disease
DX: E78.5 Hyperlipidemia, unspecified (principal)
CPT/HCPCS: 80061

== ENCOUNTER → 2022-02-17 | Outpatient (CLI) | payer MEDICARE, BC ==
[2022-02-17 11:05] LABS: ALBUMIN 3.1 g/dL (3.4-5.0); CALCIUM 8.7 mg/dL (8.5-10.1); CREATININE 1.4 mg/dL (0.6-1.0); GFR 36.3; MAGNESIUM 2.2 mg/dL (1.8-2.4); PHOSPHORUS 4.4 mg/dL (2.6-4.7); POTASSIUM 3.7 mmol/L (3.5-5.1)
[2022-02-18 14:12] LABS: CALCIUM PTH 9.1 mg/dL (8.7-10.3); CREATININE PTH 1.26 mg/dL (0.57-1.00); PTH INTACT 30 pg/mL (15-65)
[2022-02-18 21:01] LABS: CREATININE,RANDOM URINE 62.7 mg/dL (Not Establ.)
== END ==
LOC: LAB 09:57
PROVIDERS: ATTEND Internal Medicine Nephrology
DX: I12.9 Hypertensive chronic kidney disease with stage 1 through stage 4 chronic kidney disease, or unspecified chronic kidney disease (principal); N18.32 Chronic kidney disease, stage 3b; N28.1 Cyst of kidney, acquired; M32.9 Systemic lupus erythematosus, unspecified; K22.2 Esophageal obstruction; E83.30 Disorder of phosphorus metabolism, unspecified; M35.9 Systemic involvement of connective tissue, unspecified; Z68.22 Body mass index [BMI] 22.0-22.9, adult
CPT/HCPCS: 80069; 82043; 82570; 83735; 83970; 84156